=== PATIENT | female | born 1975 | race American Indian/Alaskan Native ===

== ENCOUNTER 2020-08-27 12:37 | Outpatient (CLI) | payer OTHER ==
--- NOTE | 2020-08-27 14:10 | Ultrasound Report ---
ULTRASOUND GUIDED LEFT BREAST BIOPSY, 08/27/2020 R/L DIAGNOSTIC MAMMOGRAM CLINICAL INFORMATION / INDICATION: POST US BX. Patient with a left breast nodule, here for biopsy and clip placement COMPARISON: Mammogram and ultrasound from 08/11/2020 PROCEDURE: Risks, benefits, and indications to the procedure were discussed with the patient in detail, includin g bleeding, infection, hematoma formation, and inadequate tissue sampling. The patient agreed to proc eed with both verbal and written consent. A timeout procedure was performed with two patient identifi ers. The breast was prepped and draped in the usual sterile fashion. Lidocaine 1% was used for local anest hesia. Under direct ultrasound guidance, 3 12-gauge core samples were obtained of the left breast nod ule. A biopsy marker was then placed. Biopsy device was removed and hemostasis achieved with manual pressure. A sterile dressing was applied to the skin. The patient tolerated the procedure without difficulty. No complications were encountered. Postbiopsy instructions were discussed with the patient and given in writing. Specimens were sent to pathology. The patient was then sent for a confirmatory mammogram to demonstrate adequate clip positioning in th e area in question. IMPRESSION: 1. Technically successful ultrasound guided left breast biopsy. 2. Satisfactory positioning of the biopsy clip on the post procedure mammogram. Biopsy results are pending and will be reported in an addendum. Signer Name: Zhang Zayas MD Signed: 08/27/2020 2:06 PM Workstation Name: [id number]
== END 2020-08-27 12:38 | disposition home or self-care (01) ==
LOC: US 12:37
PROVIDERS: ATTEND Surgery
DX: N63.21 Unspecified lump in the left breast, upper outer quadrant (principal); D24.2 Benign neoplasm of left breast; N64.89 Other specified disorders of breast; Z79.899 Other long term (current) drug therapy
CPT/HCPCS: 19083; 77065; 88305; A4648

== ENCOUNTER 2021-01-18 14:08 | Emergency (ER) | payer OTHER ==
[2021-01-18] MEDS ORDERED: ACETAMINOPHEN 500 MG TAB PO STA (20:28)
[2021-01-18] MEDS ORDERED: IBUPROFEN 800 MG TAB PO STA (20:28)
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
[2021-01-18 23:35] VITALS: BP 160/100
== END 2021-01-18 23:45 | disposition home or self-care (01) ==
LOC: ED 14:08
DX: S93.401A Sprain of unspecified ligament of right ankle, initial encounter (principal); M54.2 Cervicalgia; R07.89 Other chest pain; E66.9 Obesity, unspecified; Z79.899 Other long term (current) drug therapy; Z98.890 Other specified postprocedural states; Z98.51 Tubal ligation status; Z68.38 Body mass index [BMI] 38.0-38.9, adult; V49.49XA Driver injured in collision with other motor vehicles in traffic accident, initial encounter; Y92.410 Unspecified street and highway as the place of occurrence of the external cause; Y93.89 Activity, other specified; Y99.8 Other external cause status
CPT/HCPCS: 71046